=== PATIENT | female | born 1945 | race Caucasian/White ===

== ENCOUNTER 2016-08-21 08:04 | Day surgery (SDC) | payer MEDICARE, OTHER ==
--- NOTE | ~2016-08-21 | OP ---
Record Of Operation [facility] [address] [place]. [address] NAME: VY ESPINOZA : 49 STATUS : REG [facility]#: [id number] AGE: 71 ADM/REG DATE : 08/21/16 MR#: [id number] REPORT SERV DATE: 08/21/16 DICTATED BY: LIANNE PRITCHARD DATE: 08/21/16 REPORT STATUS : Draft TRANSCRIBED BY: MIKE DATE: 08/21/16 DATE OF PROCEDURE: 08/21/2016 PREOPERATIVE DIAGNOSIS: Possible temporal arteritis. POSTOPERATIVE DIAGNOSIS: Possible temporal arteritis. OPERATION: Right temporal artery biopsy. SUMMARY: After adequate general anesthesia, prep and drape, the skin incision was made directly over the temporal artery, and carried down through the skin and subcutaneous tissue. The temporal artery was dissected free carefully from the surrounding tissue. This was identified with the Doppler. This was then clipped proximally and distally and the specimen was removed. The proximal and distal ends of the temporal artery were tied with 3- 0 silk suture. After adequate irrigation, good hemostasis with cautery unit, closure was accomplished with subdermal stitches, 0.5% Marcaine was used to anesthetize, and Dermabond was placed. Pressure dressing was applied. The patient tolerated the procedure well and taken to the recovery room in satisfactory condition. LEONIE/MIKE Lianne Pritchard M.D. / [id number] CC: Weston Zavaleta M.D.
[~2016-08-21 08:04] MED LIST: BIOTIN PO; GLUCOSAMINEPO PO; LEVOTHYROXIN75 MCG PO; MAGNESIUM PO; P20 PO; PROBIOTIC PO; VITAMIN B COMPLEX PO; VITAMIN D1000 UNI1 PO; VYTORIN 10/20 T1 TAB PO; X5 PO; [UNRECOGNIZED DRUG - OTHER] PO
[2016-08-21 08:58] LABS: HEMATOCRIT 38.8 % (36.0-48.0)
[2016-08-21 09:09] LABS: BUN (BLOOD UREA NITROGEN) 31 MG/DL (6-23); CALCIUM, SERUM 8.7 MG/DL (8.5-10.4); CHLORIDE, SERUM 102 MMOL/L (96-112); CO2 (CARBON DIOXIDE) 27 MMOL/L (24-34); CREATININE 0.67 MG/DL (0.55-1.02); GFR AFRICAN AMERICAN 104 ML/MIN (>=60); GFR NON AFRICAN AMERICAN 90 ML/MIN (>=60); GLUCOSE, SERUM 87 MG/DL (60-99); POTASSIUM, SERUM 4.1 MMOL/L (3.5-5.3); SODIUM, SERUM 140 MMOL/L (135-148)
== END 2016-08-21 13:45 | disposition home or self-care (01) ==
LOC: SDC 08:04
PROVIDERS: Specialist
PROC: 03LS0ZZ Occlusion of Right Temporal Artery, Open Approach (ICD-10-PCS; principal; 2016-08-21 10:00)
DX: R51 Headache (principal); E78.5 Hyperlipidemia, unspecified; E03.9 Hypothyroidism, unspecified; E66.01 Morbid (severe) obesity due to excess calories; E78.00 Pure hypercholesterolemia, unspecified; G47.33 Obstructive sleep apnea (adult) (pediatric); M54.5 Low back pain; K21.9 Gastro-esophageal reflux disease without esophagitis; K44.9 Diaphragmatic hernia without obstruction or gangrene; F41.9 Anxiety disorder, unspecified; Z99.89 Dependence on other enabling machines and devices; Z79.52 Long term (current) use of systemic steroids; Z79.899 Other long term (current) drug therapy; Z87.891 Personal history of nicotine dependence; Z90.49 Acquired absence of other specified parts of digestive tract; Z98.890 Other specified postprocedural states; Z90.710 Acquired absence of both cervix and uterus; Z92.3 Personal history of irradiation
CPT/HCPCS: 80048; 85014; 85018; 88305; 88313; 93005; A9270-GY; J0690; J2250; J2370; J2405; J3010